=== PATIENT | male | born 1975 | race Caucasian/White ===

== ENCOUNTER 2020-10-24 10:51 | Outpatient (RCR) | payer OTHER, SELFPAY ==
[2019-09-26 10:06] VITALS: BMI 31.4
== END 2020-12-17 23:59 ==
LOC: IMMUN 10:51
PROVIDERS: PCP Family Medicine; Referring Provider Family Medicine; Visit Provider Family Medicine
DX: Z23 Encounter for immunization (principal)
CPT/HCPCS: 0001A; 0002A; 91300

== ENCOUNTER → 2021-03-06 12:10 | Outpatient (CLI) | payer OTHER, SELFPAY ==
[2021-03-06 15:23] LABS: Anion Gap 4 (5-15); BUN 12 mg/dL (7-18); BUN/Creat Ratio 11.8 RATIO (10-20); Calcium,Total 8.9 mg/dL (8.5-10.1); Chloride 105 mmol/L (98-107); Cholesterol 178 mg/dL (200); Creatinine, Serum 1.02 mg/dL (0.70-1.30); EST Glomerular Filtration Rate 83 mL/min (>60); Est Glom Filt Rate - Afr Amer 101 mL/min (>60); Glucose 74 mg/dL (74-106); High Density Lipoprotein 37 mg/dL; PSA,Total - Annual Screen 0.49 ng/mL (0.00-4.00); Potassium 3.6 mmol/L (3.5-5.1); Sodium Level 139 mmol/L (136-145); Triglycerides 193 mg/dL; Very Low Density Lipoprotein 39 mg/dL (5-40)
[2021-03-07 11:37] LABS: Vitamin D,25 Hydroxy 24.6 ng/mL
== END ==
PROVIDERS: PCP Family Medicine; Visit Provider Family Medicine
DX: Z00.00 Encounter for general adult medical examination without abnormal findings (principal)
CPT/HCPCS: 36415; 80048; 80061; 82306; 84153; 84403; G0103

== ENCOUNTER → 2021-05-21 16:14 | Outpatient (CLI) | payer OTHER, SELFPAY | PROVIDERS: PCP Family Medicine; Visit Provider Family Medicine | DX: Z23 Encounter for immunization (principal) | CPT/HCPCS: 0004A; 91300 ==

== ENCOUNTER → 2022-11-23 | Outpatient (CLI) | payer OTHER, SELFPAY ==
[2022-11-23 13:17] LABS: Vitamin D,25 Hydroxy 38.6 ng/mL
[2022-11-23 13:39] LABS: Anion Gap 8 (5-15); BUN 12 mg/dL (7-18); BUN/Creat Ratio 11.8 RATIO (10-20); Calcium,Total 8.9 mg/dL (8.5-10.1); Chloride 109 mmol/L (98-107); Cholesterol 164 mg/dL (200); Creatinine, Serum 1.02 mg/dL (0.70-1.30); EST Glomerular Filtration Rate 82 mL/min (>60); Est Glom Filt Rate - Afr Amer 100 mL/min (>60); Glucose 83 mg/dL (74-106); High Density Lipoprotein 40 mg/dL; Potassium 4.1 mmol/L (3.5-5.1); Sodium Level 140 mmol/L (136-145); Triglycerides 128 mg/dL; Very Low Density Lipoprotein 26 mg/dL (5-40)
== END | disposition home or self-care (01) ==
LOC: MFPLAB 10:50
PROVIDERS: PCP Family Medicine; Visit Provider Family Medicine
DX: Z00.00 Encounter for general adult medical examination without abnormal findings (principal)
CPT/HCPCS: 36415; 80048; 80061; 82306

== ENCOUNTER 2023-02-10 07:11 | Day surgery (SDC) | payer OTHER, SELFPAY ==
[2023-02-10] VITALS (8 sets, daily range): BP systolic 82–129; BP diastolic 67–78; PULSE 62–76; RESP 16–18; TEMP 35.9–36.4; O2SAT 92–100; BMI 29.9
[2023-02-10] MEDS: Lactated Ringers 1,000 ML 15 ML IV (07:36)
--- NOTE | 2023-02-10 07:39 | HP.PCM_ITS ---
HPI - General General Date of Admission: 02/10/23 Date of Service: 02/10/23 Chief Complaint: Screening colonoscopy HPI Narrative CARLEEN MACK, is a 47 M who presents today for a screening colonoscopy. He has no past medical history and does not take any medicines on a daily basis. He has a family history of polyps in his father. He currently is not experiencing any problems with his bowels including no bleeding per rectum, diarrhea or constipation. He denies any abdominal pain. All other 16 review systems are negative except those pertinent positive mentioned HPI. [facility] Medical History (Updated 02/05/23 @ 09:41 by Shaye Wilburn) Alcohol use History of acquired spondylolisthesis IBS (irritable bowel syndrome) Non-smoker Wears glasses Home Medications NK 11/24/22 [History Last Taken Unknown] Allergy/AdvReac Type Severity Reaction Status Date / Time No Known Allergies Allergy Verified 02/05/23 09:36 Family History (Updated 11/24/22 @ 16:12 by Irene Rodriguez) Father Colon polyps Surgical History (Updated 02/05/23 @ 09:41 by Shaye Wilburn) History of cholecystectomy Social History Smoking Status: Never smoker alcohol intake: current alcohol intake frequency: holidays/special occasions only substance use type: does not use what type of physical activity do you participate in: running and weight training frequency: 3-4 times per week ROS Review of Systems ROS Unobtainable: other Constitutional Constitutional: Denies fatigue, fever(s), poor appetite, weight gain or weight loss ENT HEENT: Denies mouth lesions Cardiovascular Cardiovascular: Denies abdominal bloating, abdominal edema or abdominal pain Respiratory/Chest Respiratory/Chest: Denies change in mental status, change in phlegm color, chest congestion or chest tightness Gastrointestinal Gastrointestinal: Denies belching, bloating, change in bowel habits, change in stool character, chewing difficulty, coffee ground emesis, constipation, cramping, diarrhea, dyspepsia, dysphagia, early satiety, excessive flatus, fecal incontinence, heartburn, hematemesis, hematochezia, hemorrhoids, loose stools, melena, nausea, odynophagia, rectal bleeding, tenesmus, vomiting or weight changes Genitourinary Genitourinary: Denies abdominal discomfort, burning urination or itching Musculoskeletal Musculoskeletal: Reports as per HPI; Denies muscle weakness or myalgias Integumentary Integumentary: Denies jaundice Neurologic Neurologic: Denies lack of coordination or weakness Psychiatric Psychiatric: Denies confusion, depression, memory loss, mood swings, paranoia or suicidal ideation Endocrine Endocrinology: Denies systems reviewed and no addt'l complaints, except as documented Hematologic/Lymphatic Hematologic/Lymphatic: Denies anemia, easy bleeding, easy bruising or lymphadenopathy Allergic/Immunologic Allergic/Immunologic: Denies systems reviewed and no addt'l complaints, except as documented Physical Exam Const alert General Appearance: cooperative Orientation / Consciousness: oriented to person HEENT hearing grossly normal bilaterally Head and Scalp: normal to inspection Face and Sinus: face symmetric Nose: external nose normal Mouth: oral and palatal mucosa normal Eyes conjunctivae normal General Eye: normal appearance of both eyes Neck full ROM General: normal visual inspection Lymph Lymphatic: no lymphadenopathy noted Chest inspection of chest normal and palpation of chest normal Chest: symmetrical chest wall rise Resp normal respiratory effort Effort and Inspection: able to speak in complete sentences Cardio regular rate GI non-distended Percussion: normal to percussion Rectal Exam: deferred Neuro Speech: speech normal Gait (Neuro): normal gait Assessment & Plan Assessment/Plan (1) Encounter for screening for malignant neoplasm of colon: PLAN: He was explained alternatives, risk, benefits including not withstanding bleeding, infection, sepsis, perforation, need for emergent surgery . He will and ASA of 2.
--- NOTE | 2023-02-10 08:15 | COLBX_PTH ---
PATIENT: CARLEEN MACK LOC: EN U#:[id number] AGE/SX: 47/M ROOM: RE02/10/[address]: Dr. Quintin Shabazz DO : 1975 BED: DIS: 02/10/2023 SPEC #: [id number] RECD: 02/10/23 11:33 STATUS: BYRON WILLY #: [id number] JOURDAN: 02/10/23 08:[address]: Quintin hSabazz DEPT: SURGICAL PATHOLOGY RECD BY: Bess Mcginnis ENTERED: 02/10/23 13:28 SP TYPE: COLON BX OTHR DR: Dr. Harlan Hooper MD Tissues: A - Ascending colon B - Rectum, NOS Procedures: Surgery Specimen Level IV HEADER OPERATION: Colonoscopy - open access (MAC), polypectomy PRE-OP DIAGNOSIS: Screening TISSUE SUBMITTED: A - Ascending colon polyp, B - Rectum polyp MICROSCOPIC DIAGNOSIS A. Ascending colon polyp, polypectomy: Fragments of hyperplastic polyp. B. Rectum polyp, polypectomy: Hyperplastic polyp. SJ:shannon 02/11/2023 MICROSCOPIC DESCRIPTION Slides are reviewed. GROSS DESCRIPTION A - Received in fixative is one container labeled with the patient's name and designated ascending colon polyp. The specimen consists of multiple irregular fragments of light macdonald soft tissue that in aggregate measure 1.0 x 0.5 x 0.1 cm. The specimen is totally submitted in one cassette. B - Received in fixative is one container labeled with the patient's name and designated rectal polyp. The specimen consists of multiple irregular fragments of light macdonald soft tissue that in aggregate measure 0.3 x 0.3 x 0.1 cm. The specimen is totally submitted in one cassette. / AM:shannon 02/10/2023 TC:1 CPT: 01380 x2
--- NOTE | 2023-02-10 08:45 | OP.COLON_ITS ---
Patient Name: Alex Romero Procedure Date: 02/10/2023 8:02 AM Date of : 1975 Age: 47 Procedure: Colonoscopy Indications: Screening for colorectal malignant neoplasm Providers: Quintin Shabazz DO Referring MD: Quintin Shabazz DO Medicines: Monitored Anesthesia Care Patient Profile: This is a 47 year old male. Refer to note in patient chart for documentation of history and physical. Last Colonoscopy: none. The patient's first colonoscopy is today. Complications: No immediate complications. Procedure: Pre-Anesthesia Assessment: - Prior to the procedure, a History and Physical was performed, and patient medications and allergies were reviewed. The patient is competent. The risks and benefits of the procedure and the sedation options and risks were discussed with the patient. All questions were answered and informed consent was obtained. Patient identification and proposed procedure were verified by the physician in the pre-procedure area. Mental Status Examination: alert and oriented. Airway Examination: normal oropharyngeal airway and neck mobility. Respiratory Examination: clear to auscultation. CV Examination: normal. Prophylactic Antibiotics: The patient does not require prophylactic antibiotics. Prior Anticoagulants: The patient has taken no previous anticoagulant or antiplatelet agents. ASA Grade Assessment: II - A patient with mild systemic disease. After reviewing the risks and benefits, the patient was deemed in satisfactory condition to undergo the procedure. The anesthesia plan was to use monitored anesthesia care (MAC). Immediately prior to administration of medications, the patient was re-assessed for adequacy to receive sedatives. The heart rate, respiratory rate, oxygen saturations, blood pressure, adequacy of pulmonary ventilation, and response to care were monitored throughout the procedure. The physical status of the patient was re-assessed after the procedure. After I obtained informed consent, the scope was passed under direct vision. Throughout the procedure, the patient's blood pressure, pulse, and oxygen saturations were monitored continuously. The Colonoscope was introduced through the anus and advanced to the cecum, identified by appendiceal orifice and ileocecal valve. The colonoscopy was performed without difficulty. The patient tolerated the procedure well. The quality of the bowel preparation was good. Scope In: 8:16:22 AM Scope Withdrawal Time 0 hours 14 minutes 5 seconds Scope Out: 8:34:26 AM Total Procedure Duration Time 0 hours 18 minutes 4 seconds Findings: The perianal and digital rectal examinations were normal. A few small-mouthed diverticula were found in the recto-sigmoid colon and sigmoid colon. Two sessile polyps were found in the rectum and ascending colon. The polyps were 1 to 2 mm in size. These polyps were removed with a hot snare. Resection and retrieval were complete. Verification of patient identification for the specimen was done. Estimated blood loss was minimal. The exam was otherwise without abnormality on direct and retroflexion views. Impression: - Diverticulosis in the recto-sigmoid colon and in the sigmoid colon. - Two 1 to 2 mm polyps in the rectum and in the ascending colon, removed with a hot snare. Resected and retrieved. - The examination was otherwise normal on direct and retroflexion views. Recommendation: - Discharge patient to home. - Resume previous diet. - Continue present medications. - Continue present medications. - Await pathology results. - Repeat colonoscopy in 5 years for surveillance. Procedure Code(s): --- Professional --- 78604, Colonoscopy, flexible; with removal of tumor(s), polyp(s), or other lesion(s) by snare technique CPT copyright 2017 [employer]. All rights reserved. The codes documented in this report are preliminary and upon wash driller helper review may be revised to meet current compliance requirements. Quintin Shabazz DO 02/10/2023 8:45:27 AM This report has been signed electronically. Number of Addenda: 0 Note Initiated On: 02/10/2023 8:02 AM
--- NOTE | 2023-02-10 08:45 | OP.CCLET_ITS ---
02/10/2023 Harlan Hooper MD [address] [id number] Re : Colonoscopy procedure for Alex Romero Dear Dr. Hooper This procedure was performed on Friday, February 10, 2023. My impressions and recommendations are as follows: Impressions : - Diverticulosis in the recto-sigmoid colon and in the sigmoid colon. - Two 1 to 2 mm polyps in the rectum and in the ascending colon, removed with a hot snare. Resected and retrieved. - The examination was otherwise normal on direct and retroflexion views. Recommendations : - Discharge patient to home. - Resume previous diet. - Continue present medications. - Continue present medications. - Await pathology results. - Repeat colonoscopy in 5 years for surveillance. My findings are described in the full procedure note, which is enclosed. If I can be of further assistance, please feel free to contact me at . Sincerely, Quintin Shabazz, 02/10/2023 8:45:27 AM This report has been signed electronically.
== END 2023-02-10 09:26 | disposition home or self-care (01) ==
LOC: EN 07:14 → AC 07:17
PROVIDERS: PCP Family Medicine; Referring Provider Internal Medicine Gastroenterology; Visit Provider Internal Medicine Gastroenterology
PROC: 0DJD8ZZ Inspection of Lower Intestinal Tract, Via Natural or Artificial Opening Endoscopic (ICD-10-PCS; CPT 45378; principal; 2023-02-10 08:10)
DX: Z12.11 Encounter for screening for malignant neoplasm of colon (principal); K57.30 Diverticulosis of large intestine without perforation or abscess without bleeding; K62.1 Rectal polyp; K63.5 Polyp of colon; K58.9 Irritable bowel syndrome, unspecified
CPT/HCPCS: 45385; 88305; J7120; J2405

== ENCOUNTER → 2023-06-28 | Outpatient (CLI) | payer OTHER, SELFPAY ==
[2023-06-28 11:54] LABS: Anion Gap 6 (5-15); BUN 12 mg/dL (7-18); BUN/Creat Ratio 13.5 RATIO (10-20); Chloride 111 mmol/L (98-107); Cholesterol 171 mg/dL (200); Creatinine, Serum 0.89 mg/dL (0.70-1.30); EST Glomerular Filtration Rate 96 mL/min (>60); Est Glom Filt Rate - Afr Amer 116 mL/min (>60); Glucose 101 mg/dL (74-106); High Density Lipoprotein 43 mg/dL; Potassium 4.2 mmol/L (3.5-5.1); Sodium Level 142 mmol/L (136-145); Thyroid Stim Hormone (TSH) 1.66 uIU/mL (0.358-3.74); Triglycerides 107 mg/dL; Very Low Density Lipoprotein 21 mg/dL (5-40)
== END | disposition home or self-care (01) ==
LOC: MFPLAB 08:47
PROVIDERS: PCP Family Medicine; Visit Provider Family Medicine
DX: Z00.00 Encounter for general adult medical examination without abnormal findings (principal); Z12.11 Encounter for screening for malignant neoplasm of colon
CPT/HCPCS: 36415; 80048; 80061; 84443

== ENCOUNTER → 2025-06-11 | Outpatient (CLI) | payer OTHER, SELFPAY ==
--- OUTSIDE RECORDS SUMMARY | 2025-06-11 08:07 | XMS RPT_ITS | CCD ---
Author Organization [facility] [place] Care Team Providers Care Android Developer Name Role Phone Kimberly Yates Unavailable Unavailable Kimberly Yates Unavailable Unavailable Dr. Harlan Hooper Primary Care Provider Irene Rodriguez Attending Provider Unavailable Friend, Dr. Ribeiro Attending Provider [phone] Friend, Dr. Ribeiro Referring Provider [phone] Friend, Dr. Ribeiro Other Provider Rufus VAZQUEZ, Dr. Clraos Primary Care Provider Rufus VAZQUEZ, Dr. Claros Referring Provider [phone] Amadou EGG SEPARATOR-CEnedelia Attending Provider Enedelia Tobar Attending Unavailable Harlan Hooper Referring Unavailable Harlan Hooper Primary Care Unavailable Allergies Allergy Classification Reported Allergen(s) Allergy Type Date of Onset Reaction(s) Facility (2 sources) Cat; Translations: [CATS] allergy to substance 7 Red swollen eyes and itching [facility] Work Phone: Medications Current Medications Medication Drug Class(es) Dates Sig (Normalized) Sig (Original) Mupirocin (1 source) RNA Synthetase Inhibitor Antibacterial Start: 01-13-2025 Mupirocin 2 % ointment Active 1 NMA TOPICAL THREE TIMES A DAY 15 0 January 13, 2025 12:00am [place] (Nk) (2 sources) Start: 11-24-2022 [place] (Nk) Active November 23, 2022 11:00pm Start: 11-24-2022 [place] (Nk) A ctive November 24, 2022 12:00am sulfamethoxazole 800 mg / trimethoprim 160 mg oral tablet (1 source) Dihydrofolate Reductase Inhibitor Antibacterial, Sulfonamide Antimicrobial Start: 01-13-2025 Sulfamethoxazole-Trimethopri m (Bactrim Ds) 800-160 mg tablet Active 1 {tbl} PO TWICE A DAY 14 7 0 January 13, 2025 12:00am January 19, 2025 12:00am Completed/Discontinued Medications Medication Drug Class(es) Dates Sig (Normalized) Sig (Original) acetaminophen 325 mg / oxyCODONE hydrochloride 5 mg oral tablet (3 sources) Opioid Agonist Start: 01-26-2014 End: 09-26-2019 Oxycodone-Acetamino phen 1 TABLET tablet Discontinued 1 - 2 {tbl} PO EVERY 4 HOURS NEEDED as needed for Pain January 26, 2014 12:00am September 26, 2019 10:07am Start: 01-26-2014 End: 09-26-2019 take 1 tablet by mouth every four hours as needed Oxycodone-Acetaminophen Discontinued 1 - 2 TABLET PO EVERY 4 HOURS NEEDED January 25, 2014 11:00pm September 26, 2019 9:07am Problems Problem Classification Problem Date Documented Da te Episodic/Chronic Other bone disease and musculoskeletal deformities (15 sources) Segmental and somatic dysfunction; Translations: [Segmental and somatic dysfunction of cervical region] Onset: 02-09-2017 02-09-2017 Episodic Other screening for suspected conditions (not mental disorders or infectious disease) (4 sources) Patient encounter status; Translations: [Encounter for screening for malignant neoplasm of colon] 11-24-2022 Episodic Results Test Name Value Interpretation Reference Range Facility Urgent Care Visit Reporton 0 01-13-2025 Urgent Care Visit Report [facility] [address], [address] [place] [id number] OFFICE VISIT Date of Service: 01/13/25 MR#: [id number] Acct: [id number] Name: CARLEEN MACK Rep #: [id number] : 1975 Provider: REGINA Tobar Age/Sex: 49/M Location: [facility] Status: Signed Intake Vital Signs 02/10/23 07:37 01/13/25 11:10 Height 5 ft 11 in 5 ft 11 in Weight: 223 lb 6 oz BMI 31.1 BP 102/80 Position Sitting Respiration 16 Pulse 79 Temp 98.2 F Temp Source Oral Pulse Oximetry (%) 98 Oxygen Delivery Method room air Intake Visit Reasons: INSECT BITE UPPER L THIGH Accompanied by: Self Allergies No Known Allergies Allergy (Verified 01/13/25 11:16) Medications ???Medication ???Instructions ???Recorded ???Confirmed ???Type mupirocin 2 % topical ointment 1 applic topical TID #15 grams 12/0301/13/25 Rx sulfamethoxazole 800 1 tab PO BID 7 days #14 tabs 01/1301/13/25 Rx mg-trimethoprim 160 mg tablet (Bactrim DS) Nurse's Note: Patient has a spot on his left thigh on top that he thought was a zit 2 days ago he picked it and now its red and blistery and has pus. Patient states it doesn't itch,burn or is painful. [facility] Medical History Wears glasses Alcohol use Non-smoker IBS (irritable bowel syndrome) History of acquired spondylolisthesis Surgical History History of cholecystectomy Family History (Updated 01/13/25 @ 11:10 by Augustina Alcocer MA) Father Colon polyps Mother Diabetes Social History Smoking Status: Never smoker alcohol intake: current alcohol intake frequency: holidays/special occasions only substance use type: does not use what type of physical activity do you participate in: running and weight training frequency: 3-4 times per week HPI HPI Details: CARLEEN MACK, is a 49 M who presents to the office today for bug bite infection -sx started 2 days ago, noticed small area of redness. thought zit popped it= then the next two days spread and got worse- redder and more swollen with blisters on top -tried so far neosporin -no pain, fever or chills ROS Const Constitutional: Positive for other (ROS negative x6 except what was placed in HPI) Exam Const General: cooperative, healthy appearing, comfortable and no acute distress Orientation: alert and oriented x3 Skin Other: -left upper thigh with quarter size round area with bright pink tissue to site when compared to surrounding tissue- no drainage. Dry crusted scabbed over areas noted- don't really look like blisters? Slight soft tissue swelling- no pain with pressure or palpation- with slight pressure unable to produce any drainage Coding Level of Care Code Off vis,new,level 3 Diagnoses Cellulitis of thigh L03.119 Assessment and Plan Assessment and Plan (1) Cellulitis of thigh: Status: Acute Plan: -take full course of atb even if feeling better -mupirocin three times a day -keep site clean and dry Please follow up with your Primary Care Physician for ongoing chronic problems. If symptoms change or worsen, please present to Emergency Room for further evaluation 1. See visit diagnoses, disposition, and orders. 2. Reviewed and updated medication list; Discussed probable diagnosis, test results if available in office today and management options with patient/guardian: agreed to the medical plan above 3. Education provided regarding visit today, see after visit summary. Instruction provided in the use of fluids, vaporizer, acetaminophen, and/or other OTC medication for symptom control. Explained use of antibiotics only for proven or strongly suspected bacterial infections. 4. Prevention and health maintenance with primary care provider. 5. Patient/guardian educated to proceed to ED with worsening of condition, changes, or failure to improve. Medications: New sulfamethoxazole-tri methoprim 800-160 mg (Bactrim DS) 1 TAB PO BID 7 days 14 tabs 0RF mupirocin 2% 1 applic topical TID 15 grams 0RF Plan Details Goals Barriers: Goals Decrease pain Improve workability Decrease spasm 01/13/25 1131 Date Enedelia Bueno Signature: Date (if applicable) CC: Normal [facility] Basophil percentageOrdered B y: Harlan Hooper on 06-28-2023 Chloride [Moles/Vol] 111 mmol/L 98-107 [facility] Cholesterol [Mass/Vol] 171 mg/dL <200 [facility] Comment on above: <200 mg/dL Desirable 200-240 mg/dL Borderline >240 mg/dL High Risk Glucose [Mass/Vol] 101 mg/dL 74-106 [facility] Comment on above: Fasting Glucose resu lt from 100 to 125 mg/dL suggests IMPAIRED HOMEOSTASIS per A.D.A. criteria. Potassium [Moles/Vol] 4.2 mmol/L 3.5-5.1 [facility] Sodium [Moles/Vol] 142 mmol/L 136-145 [facility] Triglyceride [Mass/Vol] 107 mg/dL <199 [facility] Comment on above: The drugs N-Acetylcy steine and Metamizole may falsely depress this assay.Serum Triglycerides Reference Interval Normal <150 mg/dL Borderline high 150 - 199 mg/dL High 200 - 499 mg/dL Very High > or = 500 mg/dL Laboratory - Chemistry and C hemistry - challengeOrdered By: Harlan Hooper on 06-28-2023 CO2 [Moles/Vol] 25.0 mmol/L 21.0-32.0 [facility] Urea nitrogen/Creatinine [Mass ratio] 13.5 mg/mg 10-20 [facility] No Panel InformationOrdered By: Harlan Hooper on 06-28-2023 Estimated GFR (MDRD) Amer 116 mL/min >60 [facility] Comment on above: GFR Calc Estimated GFR (MDRD) Non-Af Amer 96 mL/min >60 [facility] Comment on above: Non- GFR Calc Thyroid Stimulating Hormone (TSH) 1.66 uIU/mL 0.358-3.74 [facility] Serum or plasma calcium pierre urement (mass/volume)Ordered By: Harlan Hooper on 06-28-2023 Calcium [Mass/Vol] 9.0 mg/dL 8.5-10.1 [facility] Serum or plasma cholesterol in HDL measurement (mass/volume)Ordered By: Harlan Hooper on 06-28-2023 Cholesterol in HDL [Mass/Vol] 43 mg/dL >40 [facility] Comment on above: The drugs N-Acetylcy steine and Metamizole may falsely depress this assay. Reference Range HDL <40 mg/dL Low HDL Cholesterol HDL >or= 60 mg/dL High HDL Cholesterol Serum or plasma cholesterol in VLDL measurement (mass/volume)Ordered By: Harlan Hooepr on 06-28-2023 Cholesterol in VLDL [Mass/Vol] 21 mg/dL 5-40 [facility] Serum or plasma creatinine m easurement (mass/volume)Ordered By: Harlan Hooper on 06-28-2023 Creatinine [Mass/Vol] 0.89 mg/dL 0.70-1.30 [facility] Comment on above: The validity of the calculated GFR & GFRAA in patients over 70 years has not been determined. Clinical correlation is essential. Serum or plasma low density lipoprotein (LDL) cholesterol measurement (mass/volume)Ordered By: Harlan Hooper on 06-28-2023 Cholesterol in LDL [Mass/Vol] 107 mg/dL 0-130 [facility] Serum or plasma urea nitroge n measurement (mass/volume)Ordered By: Harlan Hooper on 06-28-2023 Urea nitrogen [Mass/Vol] 12 mg/dL -18 [facility] Thin prep Papanicolaou smear with manual screeningOrdered By: Harlan Hooper on 06-28-2023 Thin prep Papanicolaou smear with manual screening 6 -15 [facility] Basophil percentageOrdered B y: Harlan Hooper on 11-23-2022 Chloride [Moles/Vol] 109 mmol/L 98-107 [facility] Cholesterol [Mass/Vol] 164 mg/dL <200 [facility] Comment on above: <200 mg/dL Desirable 200-240 mg/dL Borderline >240 mg/dL High Risk Glucose [Mass/Vol] 83 mg/dL 74-106 [facility] Potassium [Moles/Vol] 4.1 mmol/L 3.5-5.1 [facility] Sodium [Moles/Vol] 140 mmol/L 136-145 [facility] Triglyceride [Mass/Vol] 128 mg/dL <199 [facility] Comment on above: The drugs N-Acetylcy steine and Metamizole may falsely depress this assay.Serum Triglycerides Reference Interval Normal <150 mg/dL Borderline high 150 - 199 mg/dL High 200 - 499 mg/dL Very High > or = 500 mg/dL Laboratory - Chemistry and C hemistry - challengeOrdered By: Harlan Hooper on 11-23-2022 CO2 [Moles/Vol] 23.0 mmol/L 21.0-32.0 [facility] Urea nitrogen/Creatinine [Mass ratio] 11.8 mg/mg 10-20 [facility] No Panel InformationOrdered By: Harlan Hooper on 11-23-2022 Estimated GFR (MDRD) Amer 100 mL/min >60 [facility] Comment on above: GFR Calc Estimated GFR (MDRD) Non-Af Amer 82 mL/min >60 [facility] Comment on above: Non- GFR Calc Vitamin D 25-Hydroxy 38.6 ng/mL [facility] Comment on above: Vitamin D 25(OH) Sta tus Range Deficiency <20 ng/mL (50nmol/L) Insufficiency 20 - 30 ng/mL (50 - 75 nmol/L) Sufficiency 30 - 100 ng/mL (75 - 250 nmol/L) Toxicity >100 ng/mL (>250 nmol/L) Serum or plasma calcium pierre urement (mass/volume)Ordered By: Harlan Hooper on 11-23-2022 Calcium [Mass/Vol] 8.9 mg/dL 8.5-10.1 [facility] Serum or plasma cholesterol in HDL measurement (mass/volume)Ordered By: Harlan Hooper on 11-23-2022 Cholesterol in HDL [Mass/Vol] 40 mg/dL >40 [facility] Comment on above: The drugs N-Acetylcy steine and Metamizole may falsely depress this assay. Reference Range HDL <40 mg/dL Low HDL Cholesterol HDL >or= 60 mg/dL High HDL Cholesterol Serum or plasma cholesterol in VLDL measurement (mass/volume)Ordered By: Harlan Hooper on 11-23-2022 Cholesterol in VLDL [Mass/Vol] 26 mg/dL 5-40 [facility] Serum or plasma creatinine m easurement (mass/volume)Ordered By: Harlan Hooper on 11-23-2022 Creatinine [Mass/Vol] 1.02 mg/dL 0.70-1.30 [facility] Comment on above: The validity of the calculated GFR & GFRAA in patients over 70 years has not been determined. Clinical correlation is essential. Serum or plasma low density lipoprotein (LDL) cholesterol measurement (mass/volume)Ordered By: Harlan Hooper on 11-23-2022 Cholesterol in LDL [Mass/Vol] 98 mg/dL 0-130 [facility] Serum or plasma urea nitroge n measurement (mass/volume)Ordered By: Harlan Hooper on 05-15-2023 Urea nitrogen [Mass/Vol] 12 mg/dL 7-18 [facility] Thin prep Papanicolaou smear with manual screeningOrdered By: Hralan Hooper on 11-23-2022 Thin prep Papanicolaou smear with manual screening 11-23 [facility] Office Visit: Spine Visit- N EWon 02-09-2017 Alcoholism counseling (procedure) no Invalid Interpretation Code [facility] Work Phone: Dietary management education, guidance, and counseling (procedure) yes Invalid Interpretation Code [facility] Work Phone: Documentation of current medications (procedure) Done Invalid Interpretation Code [facility] Work Phone: Documentation of current medications (procedure) T Invalid Interpretation Code [facility] Work Phone: Protein mass conc Done [facility] Work Phone: Protein mass conc T [facility] Work Phone: Protein mass conc no [facility] Work Phone: Tobacco smoking status NHIS Never Invalid Interpretation Code [facility] Work Phone: Tobacco smoking status NHIS Never smoker [facility] Work Phone: Tobacco use [facility] Never smoker Invalid Interpretation Code [facility] Work Phone: Vital Signs Date Time Vital Sign Value Performing Clinician Facility 01-13-2025 11:10-0400 Body height 180.[address] Harlan Hooper MD Work Phone: [facility] 01-13-2025 11:10-0400 Body mass index (BMI) [Ratio] 31.1 kg/m2 Dr. Harlan Hooper MD Work Phone: [facility] 01-13-2025 11:10-0400 Body temperature 98.2 [degF] Dr. Harlan Hooper MD Work Phone: [facility] 01-13-2025 11:10-0400 Body weight 101.[address] Harlan Hooper MD Work Phone: [facility] 01-13-2025 11:10-0400 Diastolic blood pressure 80 mm[Hg] Dr. Harlan Hooper MD Work Phone: [facility] 01-13-2025 11:10-0400 Heart rate 79 /min Dr. Harlan Hooper MD Work Phone: [facility] 01-13-2025 11:10-0400 Respiratory rate 16 /min Dr. Harlan Hooper MD Work Phone: [facility] 01-13-2025 11:10-0400 SaO2% (BldA) [Mass fraction] 98 % Dr. Harlan Hooper MD Work Phone: [phone] [place] [address] 01-13-2025 11:10-0400 Systolic blood pressure 102 mm[Hg] Dr. Harlan Hooper MD Work Phone: [phone] [place] [address] 02-10-2023 09:08-0400 Body temperature 97.5 [degF] Dr. Harlan Hooper Work Phone: [phone] [place] [address] 02-10-2023 09:08-0400 Diastolic blood pressure 76 mm[Hg] Dr. Harlan Hooper Work Phone: [facility] 02-10-2023 09:08-0400 Heart rate 65 /min Dr. Harlan Hooper Work Phone: [phone] [place] [address] 02-10-2023 09:08-0400 Respiratory rate 16 /min Dr. Harlan Hooper Work Phone: [facility] 02-10-2023 09:08-0400 SaO2% (BldA) [Mass fraction] 99 % Dr. Harlan Hooper Work Phone: [facility] 02-10-2023 09:08-0400 Systolic blood pressure 114 mm[Hg] Dr. Harlan Hooper Work Phone: [facility] 02-10-2023 07:37-0400 Body height 180.[address] Harlan Hooper Work Phone: [phone] [place] [address] 02-10-2023 07:37-0400 Body mass index (BMI) [Ratio] 29.9 kg/m2 Dr. Harlan Hooper Work Phone: [facility] 02-10-2023 07:37-0400 Body weight 97.[address] Harlan Hooper Work Phone: [facility] 11-24-2022 16:15-0400 Body mass index (BMI) [Ratio] 30.1 kg/m2 Dr. Harlan Hooper Work Phone: [facility] 11-24-2022 16:15-0400 Body weight 97.[address] Harlan Hooper Work Phone: [facility] 02-09-2017 15:48-0400 BMI (Body Mass Index) 29.01 kg/m2 [facility] Work Phone: 02-09-2017 15:48-0400 Height 180.34 cm [facility] Work Phone: 02-09-2017 15:48-0400 Pulse (Heart Rate) 82 /min [facility] Work Phone: 02-09-2017 15:48-0400 Respiratory Rate 19 /min [facility] Work Phone: 02-09-2017 15:48-0400 Weight 94.35 kg [facility] Work Phone: Encounters Encounter Date Encounter Type Care Provider Facility Start: 01-13-2025 End: 01-13-2025 Patient encounter procedure Enedelia Tobar [facility] Work Phone: Start: 01-13-2025 End: 01-13-[address] Harlan Hooper MD Work Phone: [facility] Start: 06-28-2023 End: 06-28-2023 ambulatory [facility] Work Phone: Start: 06-28-2023 End: 06-28-2023 Patient encounter procedure [facility] Start: 02-10-2023 Non-patient / Non-visit Dr. Kentrell Hooper Work Phone: [facility] Start: 02-10-2023 End: 02-10-2023 Admission to same day surgery center Dr. Harlan Hooper Work Phone: [facility] Work Phone: Start: 02-10-2023 End: 02-10-[address] Harlan Hooper Work Phone: [facility] Work Phone: Start: 11-24-2022 Non-patient / Non-visit Dr. Kentrell Hooper Work Phone: [facility] Work Phone: Start: 11-23-2022 End: 11-23-[address] Harlan Hooper Work Phone: [facility] Procedures Date Procedure Procedure Detail Performing Clinician Start: 02-10-[address] Harlan salvador Work Phone: Start: 02-09-2017 End: 02-09-2017 Dietary management education, guidance, and counseling Kimberly Yates Start: 02-09-2017 End: 02-09-2017 Chiropractic manipulation Dina Sweeney DC Work Phone: Plan of Treatment Date Care Activity Detail Author Start: 02-10-2023 Patient discharge [facility] Start: 02-09-2017 End: 02-09-2017 Appointment Appointment [facility] Work Phone: Colonoscopy [facility] Patient referral [facility] Work Phone: [facility] Work Phone: Payers Date Payer Category Payer Self-pay [id number] Unknown [id number] 2011 Unknown [id number] Unknown [id number] Social History Date Type Detail Facility Start: 02-05-2023 End: 02-05-2023 Tobacco smoking status NHIS Unknown if ever smoked [facility] Start: 1975 Sex Assigned At Male [facility] Start: 02-05-2023 Tobacco smoking stat us NHIS Never smoked tobacco (finding) [facility] Goals Date Patient Goal Desired Activity /State Mental Status Date Assessment Result Facility 02-10-2023 Cognitive function Voice/Name [facility] Work Phone: Procedure note 02-10-2023 Note Date & Type Note Facility 02-10-2023 Procedure note [facility] Procedure note 02-10-2023 Note Date & Type Note Facility 02-10-2023 Procedure note [facility] Evaluation note Note Date & Type Note Facility Evaluation note Diagnosis Onset Date Encounter for screening for malignant neoplasm of colon acute [facility] Work Phone: Evaluation note Note Date & Type Note Facility Evaluation note No assessment information availa [facility] Work Phone: History and physical note Note Date & Type Note Facility History and physical note Note Date/Time February 10, 2023 7:41am [facility] Medical Records Department [address] [place] [address] History & Physical Exam 02/10/23 0739 MR#: [id number] Acct: [id number] Name: CARLEEN MACK Navid Rep #:[id number] : 1975 47 From: Quintin Friend DO PCP: Dr. Harlan Hooper MD Status:REG S DC Location: [place] [address] HPI - General General Date of Admission: 02/10/23 Date of Service: 02/10/23 Chief Complaint: Screening colonoscopy HPI Narrative CARLEEN MACK, is a 47 M who presents today for a screening colonoscopy. He hasno past medical history and does not take any medicines on a daily basis. He has a family history of polyps in his father. He currently is not experiencing any problems with his bowels including no bleeding per rectum, diarrhea or constipation. He denies any abdominal pain. All other 16 review systems are negative except those pertinent positive mentioned HPI. [facility] Medical History (Updated 02/05/23 @ 09:41 by Shaye Wilburn) Alcohol use History of acquired spondylolisthesis IBS (irritable bowel syndrome) Non-smoker Wears glasses Home Medications NK 11/24/22 [History Last Taken Unknown] Allergy/AdvReac Type Severity Reaction Status Date / Time No Known Allergies Allergy Verified 02/05/23 09:36 Family History (Updated 11/24/22 @ 16:12 by Irene Rodriguez) Father Colon polyps Surgical History (Updated 02/05/23 @ 09:41 by Shaye Wilburn) History of cholecystectomy Social History Smoking Status: Never smoker alcohol intake: current alcohol intake frequency: holidays/special occasions only substance use type: does not use what type of physical activity do you participate in: running and weight training frequency: 3-4 times per week ROS Review of Systems ROS Unobtainable: other Constitutional Constitutional: Denies fatigue, fever(s), poor appetite, weight gain or weight loss ENT HEENT: Denies mouth lesions Cardiovascular Cardiovascular: Denies abdominal bloating, abdominal edema or abdominal pain Respiratory/Chest Respiratory/Chest: Denies change in mental status, change in phlegm color, chestcongestion or chest tightness Gastrointestinal Gastrointestinal: Denies belching, bloating, change in bowel habits, change in stool character, chewing difficulty, coffee ground emesis, constipation, cramping, diarrhea, dyspepsia, dysphagia, early satiety, excessive flatus, fecalincontinence, heartburn, hematemesis, hematochezia, hemorrhoids, loose stools, melena, nausea, odynophagia, rectal bleeding, tenesmus, vomiting or weight changes Genitourinary Genitourinary: Denies abdominal discomfort, burning urination or itching Musculoskeletal Musculoskeletal: Reports as per HPI; Denies muscle weakness or myalgias Integumentary Integumentary: Denies jaundice Neurologic Neurologic: Denies lack of coordination or weakness Psychiatric Psychiatric: Denies confusion, depression, memory loss, mood swings, paranoia orsuicidal ideation Endocrine Endocrinology: Denies systems reviewed and no addt'l complaints, except as documented Hematologic/Lymphatic Hematologic/Lymphatic: Denies anemia, easy bleeding, easy bruising or lymphadenopathy Allergic/Immunologic Allergic/Immunologic: Denies systems reviewed and no addt'l complaints, except as documented Physical Exam Const alert General Appearance: cooperative Orientation / Consciousness: oriented to person HEENT hearing grossly normal bilaterally Head and Scalp: normal to inspection Face and Sinus: face symmetric Nose: external nose normal Mouth: oral and palatal mucosa normal Eyes conjunctivae normal General Eye: normal appearance of both eyes Neck full ROM General: normal visual inspection Lymph Lymphatic: no lymphadenopathy noted Chest inspection of chest normal and palpation of chest normal Chest: symmetrical chest wall rise Resp normal respiratory effort Effort and Inspection: able to speak in complete sentences Cardio regular rate GI non-distended Percussion: normal to percussion Rectal Exam: deferred Neuro Speech: speech normal Gait (Neuro): normal gait Assessment & Plan Assessment/Plan (1) Encounter for screening for malignant neoplasm of colon: PLAN: He was explained alternatives, risk, benefits including not withstanding bleeding, infection, sepsis, perforation, need for emergent surgery . He will and ASA of 2. 02/10/23 0740 <Electronically signed by Quintin Shabazz DO> Cosigner Signature (if applicable): CC: Dr. Harlan Hooper MD; Quintin Shabazz DO~ Signed [facility] Work Phone: Reason for referral (narrative) Note Date & Type Note Facility Reason for referral (narrative) No reason for referral information available [facility] Work Phone: Chief Complaint and Reason for Visit Chief Complaint Amb Documentation Reason for Visit Encounter for screen ing for malignant neoplasm of colon Chief Complaint Admit Date INSECT BITE UPPER L THIGH January 13, 2025 11:06am Advance Directives No Advanced Directives Records Found Advance Directive Response Recorded Date/ Time Advance Directives No January 25 5:24pm Living Will No February 05, 2023 9:37am Power of Hemmer [employer] No February 05 9:37am Advance Directive Response Recorded Date/ Time Advance Directives No Pamela 17th, 20 14 4:24pm Living Will No February 05, 2023 8:37am Power of [employer]mer [employer] No February 05 8:37am Advance Directive Response Recorded Date/ Time Advance Directives No January 25 14 5:24pm Family History No Family History Records Found Relationship Condition Age at Onset Recorded Date/T yue father Polyp of colon Unknown mother Diabetes mellitus Unknown Summary Purpose Additional Source Comments Care Teams (unrecognized sec tion and content) Team Status: Active Member Role Status Dates Dr. Meche Chatterjee DO Family Provider Active Dr. Harlan Hooper MD Primary Care Provider Active Team Status: Active Member Role Status Dates Dr. Harlan Hooper MD Primary Care Provider Active [facility] Attending Provider Active Team Status: Active Member Role Status Dates Dr. Harlan Hooper MD Primary Care Provider Active Dr. Quintin Shabazz DO Attending Provid er, Referring Provider, Other Provider Active Team Status: Inactive Member Role Status Dates Dr. Harlan Hooper MD Primary Care Provider, Attending Provider Active Team Status: Inactive Member Role Status Dates Dr. Harlan Hooper MD Primary Care Provider Active Dr. Quintin Shabazz DO Attending Provider, Referring Provider Active Team Status: Active Member Role/Relationship Status Dates Dr. Meche Chatterjee DO Family Provider Active Dr. Harlan Hooper MD Primary Care Provider Active Team Status: Inactive Member Role/Relationship Status Dates Dr. Harlan Hooper MD Primary Care Provider Active Start: January 13, 2025 End: January 13, 2025 Dr. Harlan Hooper MD Referring Provider Active Start: January 13, 2025 End: January 13, 2025 REGINA Gonzalez Attending Provider Active Start: January 13, 2025 End: January 13, 2025 (unrecognized sect ion and content) No Status Records Found INFORMATION SOURCE (unrecogn ized section and content) DATE CREATED AUTHOR 01/14/2025 [facility] FOR RECORDS PERTAINING TO PATIENTS WHO ARE OR HAVE BEEN ENROLLED IN A CHEMICAL DEPENDENCY/SUBSTANCEABUSE PROGRAM, SOME INFORMATION MAY BE OMITTED. This clinical summary was aggregated from multiple sources. Caution should be exercised in using it in the provision of clinical care. This summary normalizes information from multiple sources, and as a consequence, information in this document may materially change the coding, format and clinical context of patient data. In addition, data may be omitted in some cases. CLINICAL DECISIONS SHOULD BE BASED ON THE PRIMARY CLINICAL RECORDS. [employer] provides no warranty or guarantee of the accuracy or completeness of information in this document.
[2025-06-11 10:55] LABS: Anion Gap 12 (5-15); BUN 12 mg/dL (4-19); BUN/Creat Ratio 10.4 RATIO (10-20); Calcium,Total 9.0 mg/dL (7.6-11.0); Carbon Dioxide 23.3 mmol/L (21.0-32.0); Chloride 106 mmol/L (98-108); Cholesterol 173 mg/dL (<=200); Glucose 111 mg/dL (70-99); Low Density Lipoprotein Calc. 108 mg/dL; PSA,Total - Annual Screen 0.63 ng/mL (0.02-4.00); Potassium 4.1 mmol/L (3.3-5.1); Triglycerides 166 mg/dL; Very Low Density Lipoprotein 33 mg/dL (5-40); cholesterol:hdl ratio screen 4.81
== END | disposition home or self-care (01) ==
LOC: MTLAB 07:47
PROVIDERS: PCP Family Medicine; Referring Provider Nurse Practitioner Family; Visit Provider Nurse Practitioner Family
DX: Z12.5 Encounter for screening for malignant neoplasm of prostate (principal); Z13.220 Encounter for screening for lipoid disorders; Z13.1 Encounter for screening for diabetes mellitus
CPT/HCPCS: 36415; 80048; 80061; 84153; G0103

== ENCOUNTER → 2025-06-14 | Outpatient (CLI) | payer OTHER, SELFPAY | END | disposition home or self-care (01) | LOC: MTLAB 07:37 | PROVIDERS: PCP Family Medicine; Referring Provider Nurse Practitioner Family; Visit Provider Nurse Practitioner Family | DX: R73.09 Other abnormal glucose (principal) | CPT/HCPCS: 36415; 83036 ==